=== PATIENT | male | born 1995 | race Caucasian/White ===

== ENCOUNTER 2021-12-02 07:22 | Emergency (ER) | payer OTHER ==
[~2021-12-02] VITALS: Ht 167 cm; Wt 108.8 kg
--- NOTE | 2021-12-02 07:44 | ED Abdominal Pain ---
General Chief Complaint: Abdominal/GI Problems Stated Complaint: LEFT LOWER ABD PAIN Nursing Triage Note: PT PRESENTS TO ED WITH COMPLAINTS OF LLQ PAIN AND NAUSEA X 3 DAYS. Source of Information: Patient Exam Limitations: No Limitations History of Present Illness Date Seen by Provider: Dec 02, 2021 Time Seen by Provider: 07:32 Initial Comments Patient is a 26-year-old male who presents to the emergency department today with a chief complaint of generalized and left lower quadrant abdominal pain. Onset 3 days ago. Patient endorses nausea. His last bowel movement was yesterday, nonblack nonbloody. He has not had anything to eat or drink this morning. He has not taken anything for the pain. Movement and bending make his pain worse. He denies any fevers, chills. He has not vomited. He denies dysuria, urgency or frequency or dark urine. He has not had any abdominal surgeries in his past. No family history of colon cancer or polyps. He has never had pain like this before. Patient currently rates his pain at a "4" but it is worse when it "spikes". All other review of systems reviewed and negative except as stated. Timing/Duration: 2-3 Days Severity/Quality: Moderate Location: LLQ Radiation: No Radiation Activities at Onset: None Modifying Factors: Worsens With Movement Associated Symptoms: Nausea/Vomiting Allergies and Home Medications Allergies Uncoded Allergies: medical glue (Allergy, Unknown, 12/02/21) Patient Home Medication List Home Medication List Reviewed: Yes Hydrocodone/Acetaminophen (Hydrocodone-Acetamin 5-325 mg) 5 Mg-325 Mg Tablet, 1 TAB PO Q6H PRN for PAIN-MODERATE (5-7) Prescribed by: NAZ JACOBO on 12/02/21 0908 Ondansetron (Ondansetron Odt) 4 Mg Tab.rapdis, 4 MG PO Q8H PRN for nausea Prescribed by: NAZ JACOBO on 12/02/21 0908 Review of Systems Review of Systems Constitutional: see HPI EENTM: No Symptoms Reported Respiratory: No Symptoms Reported Cardiovascular: No Symptoms Reported Gastrointestinal: Abdominal Pain, Nausea Genitourinary: No Symptoms Reported Musculoskeletal: no symptoms reported Skin: no symptoms reported All Other Systems Reviewed Negative Unless Noted: Yes Past Ozqlmvj-Yufdmm-Uxeice Hx Patient Social History Tobacco Use?: No Substance use?: No Alcohol Use?: No Pt feels they are or have been: No Immunizations Up To Date First/Initial COVID19 Vaccinat: joey Second COVID19 Vaccination Adryan: joey Past Medical History Surgery/Hospitalization HX: r hip sx, tonsils Physical Exam Vital Signs Vital Signs - First Documented 12/02/21 07:35 Temp 36.8 Pulse 83 Resp 16 B/P (MAP) 138/92 (107) Pulse Ox 97 Capillary Refill : Less Than 3 Seconds Height/Weight/BMI Height: '" Weight: lbs. oz. kg; 39.00 BMI Method: General Appearance: WD/WN, no apparent distress HEENT: PERRL/EOMI Respiratory: lungs clear, normal breath sounds, no respiratory distress, no accessory muscle use Cardiovascular: regular rate, rhythm Gastrointestinal: abnormal bowel sounds (Hyperactive), guarding (Involuntary guarding), tenderness (Significant tenderness to the left lower quadrant), other (Equivocal rebound) Extremities: normal range of motion, non-tender, normal inspection, no pedal edema, normal capillary refill Neurologic/Psychiatric: alert, normal mood/affect, oriented x 3 Skin: normal color, warm/dry Progress/Results/Core Measures Results/Orders Lab Results Laboratory Tests Test 12/02/21 07:44 12/02/21 08:57 Range/Units White Blood Count 8.6 4.3-11.0 10^3/uL Red Blood Count 5.46 4.30-5.52 10^6/uL Hemoglobin 16.0 13.3-17.7 g/dL Hematocrit 48 40-54 % Mean Corpuscular Volume 87 80-99 fL Mean Corpuscular Hemoglobin 29 25-34 pg Mean Corpuscular Hemoglobin Concent 34 32-36 g/dL Red Cell Distribution Width 13.2 10.0-14.5 % Platelet Count 307 130-400 10^3/uL Mean Platelet Volume 9.9 9.0-12.2 fL Immature Granulocyte % (Auto) 0 % Neutrophils (%) (Auto) 50 42-75 % Lymphocytes (%) (Auto) 38 12-44 % Monocytes (%) (Auto) 9 0-12 % Eosinophils (%) (Auto) 2 0-10 % Basophils (%) (Auto) 0 0-10 % Neutrophils # (Auto) 4.3 1.8-7.8 10^3/uL Lymphocytes # (Auto) 3.3 1.0-4.0 10^3/uL Monocytes # (Auto) 0.8 0.0-1.0 10^3/uL Eosinophils # (Auto) 0.2 0.0-0.3 10^3/uL Basophils # (Auto) 0.0 0.0-0.1 10^3/uL Immature Granulocyte # (Auto) 0.0 0.0-0.1 10^3/uL Sodium Level 141 135-145 MMOL/L Potassium Level 4.2 3.6-5.0 MMOL/L Chloride Level 105 98-107 MMOL/L Carbon Dioxide Level 23 21-32 MMOL/L Anion Gap 13 5-14 MMOL/L Blood Urea Nitrogen 14 7-18 MG/DL Creatinine 1.05 0.60-1.30 MG/DL Estimat Glomerular Filtration Rate 100 BUN/Creatinine Ratio 13 Glucose Level 109 H 70-105 MG/DL Calcium Level 9.5 8.5-10.1 MG/DL Corrected Calcium 8.5-10.1 MG/DL Total Bilirubin 0.7 0.1-1.0 MG/DL Aspartate Amino Transf (AST/SGOT) 25 5-34 U/L Alanine Aminotransferase (ALT/SGPT) 35 0-55 U/L Alkaline Phosphatase 92 40-136 U/L Total Protein 7.8 6.4-8.2 GM/DL Albumin 4.6 H 3.2-4.5 GM/DL Urine Color YELLOW Urine Clarity CLEAR Urine pH 6.0 5-9 Urine Specific [place] 1.020 1.016-1.022 Urine Protein NEGATIVE NEGATIVE Urine Glucose (UA) NEGATIVE NEGATIVE Urine Ketones NEGATIVE NEGATIVE Urine Nitrite NEGATIVE NEGATIVE Urine Bilirubin NEGATIVE NEGATIVE Urine Urobilinogen 0.2 < = 1.0 MG/DL Urine Leukocyte Esterase NEGATIVE NEGATIVE Urine RBC (Auto) NEGATIVE NEGATIVE Urine RBC NONE /HPF Urine WBC NONE /HPF Urine Squamous Epithelial Cells 0-2 /HPF Urine Crystals NONE /LPF Urine Bacteria NEGATIVE /HPF Urine Casts NONE /LPF Urine Mucus NEGATIVE /LPF Urine Culture Indicated NO My Orders Orders - NAZ JACOBO MD Ed Iv/Invasive Line Start (12/02/21 07:40) Cbc With Automated Diff (12/02/21 07:40) Comprehensive Metabolic Panel (12/02/21 07:40) Ua Culture If Indicated (12/02/21 07:40) Ct Abdomen/Pelvis Wo (12/02/21 07:40) Ns Iv 1000 Ml (Sodium Chloride 0.9%) (12/02/21 07:45) Ondansetron Injection (Zofran Injectio (12/02/21 07:45) Fentanyl Inj (Sublimaze Injection) (12/02/21 07:45) Ketorolac Injection (Toradol Injection) (12/02/21 08:45) Medications Given in ED Current Medications Medications Dose Ordered Sig/Eliezer Route Start Time Stop Time Status Last Admin Dose Admin Fentanyl Citrate 25 mcg ONCE ONCE IVP 12/02/21 07:45 12/02/21 07:46 DC 12/02/21 07:51 25 MCG Ketorolac Tromethamine 15 mg ONCE ONCE IVP 12/02/21 08:45 12/02/21 08:46 DC 12/02/21 08:49 15 MG Ondansetron HCl 4 mg ONCE ONCE IVP 12/02/21 07:45 12/02/21 07:46 DC 12/02/21 07:51 4 MG Vital Signs/I&O 12/02/21 07:35 Temp 36.8 Pulse 83 Resp 16 B/P (MAP) 138/92 (107) Pulse Ox 97 Blood Pressure Mean: 107 Progress Progress Note : Time: 09:03 Progress Note Patient is feeling a little bit better after pain medication, nausea medication and fluids. We discussed the natural course and progression of epiploic appendagitis. Vital signs are stable. His labs are reviewed and are all reassuring. I do not believe that he has any underlying bacterial infection that would require antibiotics. I have talked to him about treatment over the next week or so. We will send him home with instructions for NSAID use as well as a couple of days of hydrocodone. Also nausea medication. Return precautions have been provided. He verbalized understanding. All questions are sought and answered Diagnostic Imaging Diagonstic Imaging: CT Comments [place], [place] NAME: KIM BRIDGES [facility] REC#: [id number] PT STATUS: REG ER : 1995 PHYSICIAN: NAZ JACOBO MD ADMIT DATE: 12/02/21/ER Draft Date of Exam:12/02/21 CT ABDOMEN/PELVIS WO EXAMINATION: CT abdomen and pelvis without contrast. TECHNIQUE: Multiple contiguous axial images were obtained through the abdomen and pelvis without the use of intravenous contrast. All CT scans use one or more of the following dose optimizing techniques: automated exposure control, MA and/or KvP adjustment based on patient size and exam type or iterative reconstruction. HISTORY: LLQ abdominal pain COMPARISON: None available. FINDINGS: Lung bases: The lung bases are clear. Solid organs: The liver is normal. The gallbladder is normal. There is no biliary ductal dilation. Pancreas is normal. Spleen is normal. Adrenal glands are normal. The kidneys are normal without visualized calculus or hydronephrosis. Bowel: The stomach and small bowel are normal without obstruction. The colon and appendix are normal. There is mild fat stranding seen along the left paracolic gutter adjacent to the descending colon (series 2 image 115). Peritoneum: There is no intraperitoneal free fluid or free air. No suspicious lymphadenopathy. Vasculature: Normal without aneurysm. Musculoskeletal: No suspicious osseous lesion or compression fracture. Pelvis: The prostate gland is normal. The urinary bladder is normal. IMPRESSION: 1. Fat stranding anterior to the left descending colon. This could represent omental infarct versus epiploic appendagitis in the appropriate clinical setting. Less likely differential consideration could include reactive inflammation from infectious or inflammatory colitis. 2. No other acute abnormality seen within the abdomen or pelvis. Dictated on workstation # [id number] Dict: 12/02/21817 Trans: 12/02/21 0825 [facility] [id number] Interpreted by: LUCINDA SALDAÑA DO Electronically signed by: Departure Impression Primary Impression: Abdominal pain Qualified Codes: R10.32 - Left lower quadrant pain Additional Impression: Epiploic appendagitis Disposition: 01 HOME, SELF-CARE Condition: Improved Departure-Patient Inst. Decision time for Depature: 09:04 Referrals: [facility] [place] NO,LOCAL PHYSICIAN (PCP) Primary Care Physician Patient Instructions: Abdominal Pain, Adult ED Add. Discharge Instructions: Drink plenty of fluids to stay well-hydrated. Take [id number] Aleve, 2 pills with food twice daily as needed for pain or you can take ibuprofen 3 tablets which is 600 mg (Advil or Motrin) every 6 hours with food as needed for pain. I have provided you with a prescription for nausea medication as well as prescribed pain medication. The hydrocodone can cause constipation, you should always take stool softeners while taking hydrocodone. Take this every 6 hours as needed for pain that is not relieved by the ibuprofen or Aleve. Do not drive while taking hydrocodone. If you develop a fever, worsening pain or vomiting please come back to the emergency department for reevaluation. Please follow-up with your primary care provider. Scripts Hydrocodone/Acetaminophen (Hydrocodone-Acetamin 5-325 mg) 5 Mg-325 Mg Tablet 1 TAB PO Q6H PRN for PAIN-MODERATE (5-7), #12 TAB Prov: NAZ JACOBO MD 12/02/21 Ondansetron (Ondansetron Odt) 4 Mg Tab.rapdis 4 MG PO Q8H PRN for nausea, #20 TAB Prov: NAZ JACOBO MD 12/02/21 NAZ JACOBO MD Dec 02, 2021 07:44
[2021-12-02] MEDS ORDERED: NS IV 1000 ML 1,000 ML IV SCH (07:45)
[2021-12-02] MEDS ORDERED: ONDANSETRON 4 MG/2 ML (SDV) Z0FRAN IVP ONE (07:45)
[2021-12-02] MEDS ORDERED: fentaNYL INJ 100 MCG/2 ML AMP IVP ONE (07:45)
[2021-12-02 07:55] LABS: BASOPHILS % (AUTO) 0 % (0-10); EOSINOPHILS # (AUTO) 0.2 10^3/uL (0.0-0.3); EOSINOPHILS % (AUTO) 2 % (0-10); HEMATOCRIT 48 % (40-54); LYMPHOCYTES # (AUTO) 3.3 10^3/uL (1.0-4.0); LYMPHOCYTES % (AUTO) 38 % (12-44); MEAN CORPUSCULAR HEMOGLOBIN 29 pg (25-34); MEAN CORPUSCULAR HGB CONC 34 g/dL (32-36); MEAN CORPUSCULAR VOLUME 87 fL (80-99); MEAN PLATELET VOLUME 9.9 fL (9.0-12.2); MONOCYTES # (AUTO) 0.8 10^3/uL (0.0-1.0); MONOCYTES % (AUTO) 9 % (0-12); NEUTROPHILS # (AUTO) 4.3 10^3/uL (1.8-7.8); NEUTROPHILS % (AUTO) 50 % (42-75); PLATELET COUNT 307 10^3/uL (130-400); WHITE BLOOD COUNT 8.6 10^3/uL (4.3-11.0)
[2021-12-02 08:03] LABS: ALBUMIN 4.6 GM/DL (3.2-4.5); CHLORIDE 105 MMOL/L (98-107); POTASSIUM 4.2 MMOL/L (3.6-5.0); SODIUM 141 MMOL/L (135-145)
[2021-12-02 08:04] LABS: CALCIUM 9.5 MG/DL (8.5-10.1)
[2021-12-02 08:05] LABS: GLUCOSE 109 MG/DL (70-105); TOTAL PROTEIN 7.8 GM/DL (6.4-8.2)
[2021-12-02 08:06] LABS: CARBON DIOXIDE 23 MMOL/L (21-32)
[2021-12-02 08:07] LABS: BILIRUBIN,TOTAL 0.7 MG/DL (0.1-1.0)
[2021-12-02 08:09] LABS: ALKALINE PHOSPHATASE 92 U/L (40-136); CREATININE SERUM 1.05 MG/DL (0.60-1.30); GFR ESTIMATED 100
[2021-12-02 08:10] LABS: BUN/CREATININE RATIO 13
[2021-12-02 08:12] LABS: ALANINE AMINOTRANSFERASE 35 U/L (0-55)
--- NOTE | 2021-12-02 08:25 | Diagnostic Imaging Report ---
EXAMINATION: CT abdomen and pelvis without contrast. TECHNIQUE: Multiple contiguous axial images were obtained through the abdomen and pelvis without the use of intravenous contrast. All CT scans use one or more of the following dose optimizing techniques: automated exposure control, MA and/or KvP adjustment based on patient size and exam type or iterative reconstruction. HISTORY: LLQ abdominal pain COMPARISON: None available. FINDINGS: Lung bases: The lung bases are clear. Solid organs: The liver is normal. The gallbladder is normal. There is no biliary ductal dilation. Pancreas is normal. Spleen is normal. Adrenal glands are normal. The kidneys are normal without visualized calculus or hydronephrosis. Bowel: The stomach and small bowel are normal without obstruction. The colon and appendix are normal. There is mild fat stranding seen along the left paracolic gutter adjacent to the descending colon (series 2 image 115). Peritoneum: There is no intraperitoneal free fluid or free air. No suspicious lymphadenopathy. Vasculature: Normal without aneurysm. Musculoskeletal: No suspicious osseous lesion or compression fracture. Pelvis: The prostate gland is normal. The urinary bladder is normal. IMPRESSION: 1. Fat stranding anterior to the left descending colon. This could represent omental infarct versus epiploic appendagitis in the appropriate clinical setting. Less likely differential consideration could include reactive inflammation from infectious or inflammatory colitis. 2. No other acute abnormality seen within the abdomen or pelvis. Dictated by: Dictated on workstation # [id number]
[2021-12-02] MEDS ORDERED: KETOROLAC 30 MG/ML VIAL IVP ONE (08:45)
[2021-12-02 09:05] LABS: BILIRUBIN,URINE NEGATIVE (NEGATIVE); CLARITY,URINE CLEAR; COLOR,URINE YELLOW; GLUCOSE, URINE (UA) NEGATIVE (NEGATIVE); KETONES,URINE NEGATIVE (NEGATIVE); LEUKOCYTE ESTERASE ,URINE NEGATIVE (NEGATIVE); NITRITE,URINE NEGATIVE (NEGATIVE); PROTEIN,URINE NEGATIVE (NEGATIVE)
[2021-12-02] MEDS ORDERED: ONDA4TAB11 PO (09:08)
[2021-12-02] MEDS ORDERED: ACHD5005 PO (09:08)
[2021-12-02 09:14] LABS: BACTERIA,URINE NEGATIVE /HPF; SQUAMOUS EPITHELIAL CELL,UR 0-2 /HPF
[2021-12-02 09:38] VITALS: BP 132/87
== END 2021-12-02 09:34 | disposition home or self-care (01) ==
LOC: EDUNIT# 07:22 → ER 07:27
DX: K63.89 Other specified diseases of intestine (principal); Z28.311 Partially vaccinated for COVID-19
CPT/HCPCS: 36415; 74176; 80053; 81000; 85025